=== PATIENT | female | born 1970 | race Caucasian/White ===

== ENCOUNTER 2021-03-08 16:00 | Emergency (ER) | payer BC ==
--- NOTE | 2021-03-08 17:10 | EDM.PDOC ---
ED HPI GENERAL MEDICAL PROBLEM - General Chief Complaint: Respiratory Problem Stated Complaint: COVID POSITIVE SOB Time Seen by Provider: 03/08/21 17:01 Source of Information: Reports: Patient History Limitations: Reports: No Limitations - History of Present Illness INITIAL COMMENTS - FREE TEXT/NARRATIVE: 50-year-old female was diagnosed with Covid 2 days ago after being ill for 5 days. She is unvaccinated. Her cough is worse today so she came in to see if there was anything she could do. Her vitals are stable, O2 saturations 97%. She does have a very persistent dry cough, appears tired and has some generalized body aches. No nausea or vomiting. She does have systemic psoriasis and was on Humira up until December but they stopped that after she developed a septic arthritis. She has no allergies. Onset: Gradual Duration: Day(s): (5 days of symptoms) Associated Symptoms: Reports: Cough, Headaches, Malaise, Shortness of Breath, Weakness. 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 Denies: Fever HEENT: Denies: Throat Pain Respiratory: Reports: Shortness of Breath, Wheezing, Cough Cardiovascular: Reports: Chest Pain (Hurts to cough) GI/Abdominal: Reports: No Symptoms Skin: Reports: Other (Widespread psoriatic patches, especially the scalp and trunk) Neurological: Reports: Headache, Weakness Psychiatric: Reports: No Symptoms ED EXAM, GENERAL - Physical Exam Exam: See Below Exam Limited By: No Limitations General Appearance: Alert, No Apparent Distress, Other (Patient appears tired, has a frequent dry cough) Head: Atraumatic, Other (Confluent scaly erythematous rash of the scalp typical of psoriasis) Neck: Non-Tender Respiratory/Chest: Lungs Clear Cardiovascular: Regular Rate, Rhythm. No: Tachycardia Neurological: Alert, Oriented Psychiatric: Flat Affect Skin Exam: Warm, Dry, Rash (Widespread scaly asymmetric rash) Course - Vital Signs Last Recorded V/S: Last Vital Signs Temp 98.2 F 03/08/21 16:31 Pulse 89 03/08/21 16:31 Resp 16 03/08/21 16:31 BP 158/90 H 03/08/21 16:31 Pulse Ox 97 03/08/21 16:31 - Orders/Labs/Meds Meds: Medications Discontinued Medications Generic Name Dose Route Start Last Admin Trade Name Humbertoq PRN Reason Stop Dose Admin Albuterol 0 gm 03/08/21 17:14 03/08/21 17:29 Albuterol 8 Gm Inhaler INH 03/08/21 17:15 2 puff ONETIME ONE Administration - Re-Assessments/Exams Free Text/Narrative Re-Assessment/Exam: 03/08/21 17:30 Patient was given 2 puffs off an albuterol inhaler, and will be discharged with some Tessalon Perles for cough suppression. She will return tomorrow morning for monoclonal antibody therapy. She is not a candidate for steroid or other treatment, her O2 saturations are 97%, respiratory rate is normal, lungs are clear Departure - Departure Time of Disposition: 17:44 Disposition: Home, Self-Care 01 Clinical Impression: Bronchitis due to COVID-19 virus - Discharge Information Instructions: COVID-19 Referrals: Hang Burns MD [Primary Care Provider] - Forms: ED Department Discharge Care Plan Goals: Try Tessalon for cough suppression as directed over the next 2 to 3 days. 2 puffs of the albuterol every 3-4 hours may be helpful. Return tomorrow for your antibody therapy as planned. Sepsis Event Note (ED) - Evaluation Sepsis Screening Result: No Definite Risk
[2021-03-08] MEDS ORDERED: Albuterol 8 GM Inhaler INH ONE (17:14)
== END 2021-03-08 17:44 | disposition home or self-care (01) ==
LOC: JP.ED 16:00
DX: U07.1 COVID-19 (principal); J40 Bronchitis, not specified as acute or chronic
CPT/HCPCS: 94640; 99284; A9270